=== PATIENT | male | born 1965 | race Caucasian/White ===

== ENCOUNTER 2020-09-12 11:54 | Observation (INO) ==
--- NOTE | 2020-07-08 08:48 | Anesthesiology Consultation ---
Date of Service July 08, 2020 Assessment & Plan (1) Encounter for pre-operative examination: Chart Review Chart Review: Acceptable Risk for Surgery (pending anesthesia evaluation DOS ) and Patient NOT seen in Pre Admission Testing -Will leave to anesthesiologist discretion DOS if PRP needed (only electrolytes done with preop labs) Per nursing assessment 06/18/20, patient denies any recent travel. No known Covid positive contacts or Covid related symptoms. Pt denies any known Covid infection in the past 90 days. Covid test 07/07/20= negative. History Surgery Operation Date: 07/11/20 07:15 Proposed Procedures p Tonsillectomy, Uvulopalatoplasty, - Gabriela Randle MD s Radiofrequency Reduction of Tongue Base, Lysis of Intranasal Adhesions - Gabriela Randle MD Height/Weight Height: 5 ft 8 in Weight: 113.398 kg Allergies Allergy/AdvReac Type Severity Reaction Status Date / Time nortriptyline AdvReac Mild INCREASED Verified 07/03/20 12:06 MOODINESS Medications Home Medications Medication Instructions Recorded Confirmed Last Taken atorvastatin 10 mg tablet 10 mg PO QPM 05/28/20 07/03/20 Unknown azelastine 137 mcg (0.1 %) nasal 1 spray INTRANASAL BID 05/28/20 07/03/20 Unknown spray aerosol baclofen 20 mg tablet 20 mg PO TID 05/28/20 07/03/20 Unknown diclofenac sodium 50 mg 50 mg PO BID 05/28/20 07/03/20 Unknown tablet,delayed release ferrous fumarate 325 mg (106 mg 325 mg PO QAM tab 05/28/20 07/03/20 Unknown iron) tablet methadone 5 mg tablet 10 mg PO TID tab 05/28/20 07/03/20 Unknown montelukast 10 mg tablet 10 mg PO QPM 05/28/20 07/03/20 Unknown multivitamin 1 tab PO QPM 05/28/20 07/03/20 Unknown naproxen 500 mg tablet 500 mg PO BID 05/28/20 07/03/20 Unknown omeprazole 40 mg capsule,delayed 40 mg PO BID 05/28/20 07/03/20 Unknown release ondansetron HCl 4 mg tablet 4 mg PO QAM 05/28/20 07/03/20 Unknown oxycodone 5 mg capsule 5 mg PO Q8H PRN 05/28/20 07/03/20 Unknown promethazine 25 mg tablet 25 mg PO Q6H PRN 05/28/20 07/03/20 Unknown ropinirole 0.5 mg tablet 0.5 mg PO HS 05/28/20 07/03/20 Unknown polyethylene glycol 3350 [Miralax] 17 g PO QAM 06/18/20 07/03/20 Unknown acetaminophen 500 mg tablet 500 mg PO Q6H PRN 06/30/20 07/03/20 Unknown Past Medical History Medical History (Updated 07/08/20 @ 08:53 by Laly Torres PA-C) Acid reflux Chronic back pain Compression fracture T12- 2009 per records Degenerative disc disease Derangement of medial meniscus of right knee Hiatal hernia History of anxiety Hyperlipidemia Osteoarthritis Restless leg syndrome Sleep apnea CPAP Tear meniscus knee LEFT Past Family History Family History Mother Heart disease Hypertension Family history of diabetes mellitus Brother Family history of diabetes mellitus Denies family history of Hearing loss No family history of adverse response to anesthesia No family history of bleeding disorder Allergies Cancer Stroke Asthma Past Surgical History Surgical History Family history of reaction to anesthesia FATHER-CONFUSION AND COMBATIVE History of colonoscopy History of esophagogastroduodenoscopy (EGD) History of nasal septoplasty History of nasal surgery History of tooth extraction Hx of vasectomy Social History Smoking Status: Former smoker tobacco type: cigarettes Do You Dip or Chew Tobacco: No Smoking End Date: 2002 Hx Alcohol Use: No Hx Substance Use: No substance use type: does not use Lab Results Anesthesia Preop Results Results Anesthesia Widget: WBC 6.32 K/uL (4.8-10.8) 07/07/20 Hgb 14.3 g/dL (14.0-18.0) 07/07/20 Hct 41.6 % (42-52) L 07/07/20 Plt 273 K/uL (130-400) 07/07/20 Na 140 mmol/L (136-145) 07/07/20 K 3.8 mmol/L (3.5-5.1) 07/07/20 Cl 107 mmol/L (98-107) 07/07/20 CO2 28 mmol/L (21-32) 07/07/20 PT 10.0 Seconds (9.0-12.0) 07/07/20 PTT 28.5 Seconds (21.0-31.0) 07/07/20 INR 1.0 (0.9-1.1) 07/07/20 Testing Electrocardiogram Date: 07/07/20 Findings: + NSR @ (67bpm) Nonspecific T wave abnormality
--- NOTE | 2020-09-11 13:40 | History & Physical Report ---
Date of Service September 11, 2020 Assessment & Plan (1) Obstructive sleep apnea: For tonsillectomy with uvulopalatopharyngoplasty and radiofrequency volume reduction of the tongue base (2) Allergic fungal sinusitis (AFS): For endoscopic sinus surgery with lysis of adhesions History of Present Illness Chief Complaint: Obstructive sleep apnea and nasal obstruction. Primary Care Provider: Gildardo Mims MD This 55-year-old gentleman who underwent endoscopic sinus surgery and endoscopic septal plasty by me in 2007 developed moderate obstructive sleep apnea with RDI of 33 and lowest oxygen saturation of 80% complicated by methadone for chronic back pain and inability to use his CPAP because of persistent nasal obstruction. He was noted to have adhesions in the middle meatus area. He also has moderate sized tonsils. Allergies Allergy/AdvReac Type Severity Reaction Status Date / Time nortriptyline AdvReac Mild INCREASED Verified 09/04/20 12:13 MOODINESS Home Medications Medication Instructions Recorded Confirmed Type atorvastatin 10 mg tablet 10 mg PO QPM 05/28/20 09/04/20 History azelastine 137 mcg (0.1 %) nasal 1 spray INTRANASAL BID 05/28/20 09/04/20 History spray aerosol baclofen 20 mg tablet 20 mg PO TID 05/28/20 09/04/20 History ferrous fumarate 325 mg (106 mg 325 mg PO QAM tab 05/28/20 09/04/20 History iron) tablet methadone 5 mg tablet 10 mg PO TID tab 05/28/20 09/04/20 History montelukast 10 mg tablet 10 mg PO QPM 05/28/20 09/04/20 History multivitamin 1 tab PO QPM 05/28/20 09/04/20 History omeprazole 40 mg capsule,delayed 40 mg PO BID 05/28/20 09/04/20 History release ondansetron HCl 4 mg tablet 4 mg PO QAM 05/28/20 09/04/20 History oxycodone 5 mg capsule 5 mg PO Q8H PRN 05/28/20 09/04/20 History promethazine 25 mg tablet 25 mg PO Q6H PRN 05/28/20 09/04/20 History ropinirole 0.5 mg tablet 0.5 mg PO HS 05/28/20 09/04/20 History polyethylene glycol 3350 [Miralax] 17 g PO QAM 06/18/20 09/04/20 History acetaminophen 500 mg tablet 500 mg PO Q6H PRN 06/30/20 09/04/20 History Past Med/Surg History Medical History Acid reflux Chronic back pain Compression fracture T12- 2009 per records Degenerative disc disease Hiatal hernia History of anxiety Hyperlipidemia Osteoarthritis Restless leg syndrome Sleep apnea CPAP Tear meniscus knee LEFT Surgical History Family history of reaction to anesthesia FATHER-CONFUSION AND COMBATIVE History of arthroscopy RT KNEE History of colonoscopy History of esophagogastroduodenoscopy (EGD) History of nasal septoplasty History of nasal surgery History of tooth extraction Hx of vasectomy Family History Mother Heart disease Hypertension Family history of diabetes mellitus Brother Family history of diabetes mellitus Denies family history of Hearing loss No family history of adverse response to anesthesia No family history of bleeding disorder Allergies Cancer Stroke Asthma Social History Smoking Status: Former smoker Second Hand Exposure: Yes ( A CHILD); Hx Alcohol Use: No Hx Substance Use: No Preferred Language: Bolivian Communication Ability: Effective Steam Tender Required: No Beliefs That Will Affect Care: None marital status: Current Living Situation: Family Current Living Situation Comment: WITH AND SON Feels Safe at Home: Yes Assistive Devices: CPAP and Glasses Physical Exam Constitutional: WD/WN, vitals as above Eyes: PERRL, conjunctivae normal, anicteric sclerae ENMT: Nose: + nasal mucous membrane abnormality (Adhesions blocking the middle meatus area on both sides), + nasal discharge (Thick santiago mucin) and + nasal polyps (Polypoid change of ethmoid mucosa) Mouth: + oropharynx abnormality (Large tonsils, hypertrophy) and + tongue abnormality (Tongue Mallampati 3) Neck: trachea midline, no thyromegaly PG Care Time/CCT Total # of Minutes Spent Total Time Spent with Patient: Total time spent is greater than 50% in coordination of care (as documented) at patient's floor/unit and/or counseling patient: Coding Level of Care Code None Diagnoses Obstructive sleep apnea G47.33 Allergic fungal sinusitis (AFS) J30.89; C49
[~2020-09-12 11:54] MED LIST: LR 15ML/HR IV SCH; ceFAZolin 2000MG 2,000 MG/15 ML SYR IV SCH
[2020-09-12] MEDS ORDERED: MIDAZOLAM HCL 1 MG/ML 2ML VIAL ONE (13:03)
[2020-09-12] MEDS ORDERED: fentaNYL citrate 100 MCG/2 ML VIAL ONE (13:03)
[2020-09-12] MEDS ORDERED: ONDANSETRON INJ 2 MG/ML 2 ML VIAL IV PRN (13:17)
[2020-09-12] MEDS ORDERED: ePHEDrine sulfate 50 MG/ML AMP IV PRN (13:17)
[2020-09-12] MEDS ORDERED: PROMETHAZINE HCL 6.25 MG in SODIUM CHLORIDE 0.9% 50 ML IV PRN (13:17)
[2020-09-12] MEDS ORDERED: ATROPINE SULFATE 0.1 MG/ML 10ML SYR IV PRN (13:17)
--- NOTE | 2020-09-12 13:17 | History & Physical Bridge Note ---
Date of Service September 12, 2020 History & Physical Bridge Note I have examined the patient, reviewed the History & Physical and in the interval since the performance of the History & Physical I have noted the following changes of clinical significance: no changes noted
[2020-09-12] MEDS ORDERED: LIDOCAINE 4% INH SOLN 4 ML BTL ONE (13:42)
[2020-09-12] MEDS ORDERED: EPINEPHrine INJ 1 MG/ML AMP ONE (13:42)
[2020-09-12] MEDS ORDERED: BUPIVACAINE/EPINEPHRINE 0.5% MPF 1:200,000 30 ML VIAL ONE (13:42)
[2020-09-12] MEDS ORDERED: NEOSTIGMINE METHYLSULFATE 1 MG/ML 10ML VIAL ONE (14:14)
[2020-09-12] MEDS ORDERED: LIDOCAINE 2% 2 ML VIAL/AMP(20MG/ML) INFIL ONE (14:14)
[2020-09-12] MEDS ORDERED: DEXAMETHASONE SOD INJ 4 MG/ML VIAL ONE (14:14)
[2020-09-12] MEDS ORDERED: PROPOFOL IV EMULSION 10 MG/ML 20 ML VIAL IV ONE (14:14)
[2020-09-12] MEDS ORDERED: ONDANSETRON INJ 2 MG/ML 2 ML VIAL ONE (14:14)
[2020-09-12] MEDS ORDERED: ROCURONIUM BROMIDE 10 MG/ML 5 ML VIAL IV ONE ×3 (14:14)
[2020-09-12] MEDS ORDERED: GLYCOPYRROLATE 0.2 MG/ML VIAL ONE (14:14)
--- NOTE | 2020-09-12 14:20 | Anesthesiology Consultation ---
Date of Service September 12, 2020 Assessment & Plan (1) Encounter for pre-operative examination: Chart Review Chart Review: Acceptable Risk for Surgery and Patient NOT seen in Pre Admission Testing Consults Requested none ASA ASA3 Proposed Anesthesia Anesthesia Type: General History Surgery Operation Date: 09/12/20 14:00 Proposed Procedures p Tonsillectomy, Uvulopalatopharyngoplasty; - Gabriela Randle MD s Radiofrequency Reduction of Tongue Base, Lysis of Intranasal Adhesions - Gabriela Randle MD Height/Weight Height: 5 ft 8 in Weight: 111.7 kg Allergies Allergy/AdvReac Type Severity Reaction Status Date / Time nortriptyline AdvReac Mild INCREASED Verified 09/12/20 12:44 MOODINESS Medications Home Medications Medication Instructions Recorded Confirmed Last Taken atorvastatin 10 mg tablet 10 mg PO QPM 05/28/20 09/12/20 09/11/20 21:00 azelastine 137 mcg (0.1 %) nasal 1 spray INTRANASAL BID 05/28/20 09/12/20 09/11/20 22:00 spray aerosol baclofen 20 mg tablet 20 mg PO TID 05/28/20 09/12/20 09/11/20 21:00 ferrous fumarate 325 mg (106 mg 325 mg PO QAM tab 05/28/20 09/12/20 09/11/20 08:00 iron) tablet methadone 5 mg tablet 10 mg PO TID tab 05/28/20 09/12/20 09/12/20 06:00 montelukast 10 mg tablet 10 mg PO QPM 05/28/20 09/12/20 09/11/20 17:00 multivitamin 1 tab PO QPM 05/28/20 09/12/20 09/11/20 22:00 omeprazole 40 mg capsule,delayed 40 mg PO BID 05/28/20 09/12/20 09/11/20 17:00 release ondansetron HCl 4 mg tablet 4 mg PO QAM 05/28/20 09/12/20 Unknown oxycodone 5 mg capsule 5 mg PO Q8H PRN 05/28/20 09/12/20 09/11/20 17:00 promethazine 25 mg tablet 25 mg PO Q6H PRN 05/28/20 09/12/20 Unknown ropinirole 0.5 mg tablet 0.5 mg PO HS 05/28/20 09/12/20 09/11/20 17:00 polyethylene glycol 3350 [Miralax] 17 g PO QAM 06/18/20 09/12/20 09/11/20 08:00 acetaminophen 500 mg tablet 500 mg PO Q6H PRN 06/30/20 09/12/20 Unknown Active Medications Generic Name Dose Route Start Last Admin Trade Name Jeffry PRN Reason Stop Dose Admin Cefazolin Sodium 2,000 mg in 15 mls @ 3.75 mls/min 09/12/20 06:00 09/12/20 13:47 Ancef 2000mg IV 09/12/20 18:00 3.75 mls/min PREOP JAKE Administration Protocol Lactated Ringer's 1,000 mls @ 15 mls/hr 09/12/20 06:00 09/12/20 13:47 Lr IV 09/13/20 05:59 Infused .Q24H JAKE Infusion NPO Date Last Intake of Fluids: 09/11/20 Time Last Intake of Fluids: 23:45 Date Last Intake of Solids: 09/11/20 Time Last Intake of Solids: 23:00 Past Medical History Medical History Acid reflux Chronic back pain Compression fracture T12- 2009 per records Degenerative disc disease Hiatal hernia History of anxiety Hyperlipidemia Osteoarthritis Restless leg syndrome Sleep apnea CPAP Tear meniscus knee LEFT Past Family History Family History Mother Heart disease Hypertension Family history of diabetes mellitus Brother Family history of diabetes mellitus Denies family history of Hearing loss No family history of adverse response to anesthesia No family history of bleeding disorder Allergies Cancer Stroke Asthma Past Surgical History Surgical History Family history of reaction to anesthesia FATHER-CONFUSION AND COMBATIVE History of arthroscopy RT KNEE History of colonoscopy History of esophagogastroduodenoscopy (EGD) History of nasal septoplasty History of nasal surgery History of tooth extraction Hx of vasectomy Social History Smoking Status: Former smoker tobacco type: cigarettes Do You Dip or Chew Tobacco: No Smoking End Date: 2002 Hx Alcohol Use: No Hx Substance Use: No substance use type: does not use Physical Exam Vital Signs Last Vital Signs Temp 36.9 C 09/12/20 12:33 Pulse 69 09/12/20 12:33 Resp 18 09/12/20 12:33 BP 135/69 09/12/20 12:33 Pulse Ox 94 09/12/20 12:33 Lab Results Anesthesia Preop Results Results Anesthesia Widget: WBC 6.65 K/uL (4.8-10.8) 09/03/20 Hgb 13.6 g/dL (14.0-18.0) L 09/03/20 Hct 40.4 % (42-52) L 09/03/20 Plt 278 K/uL (130-400) 09/03/20 Na 141 mmol/L (136-145) 09/03/20 K 3.5 mmol/L (3.5-5.1) 09/03/20 Cl 108 mmol/L (98-107) H 09/03/20 CO2 26 mmol/L (21-32) 09/03/20 PT 9.8 Seconds (9.0-12.0) 09/03/20 PTT 28.2 Seconds (21.0-31.0) 09/03/20 INR 1.0 (0.9-1.1) 09/03/20 SARS-CoV-2, RNA, NAAT NEGATIVE (NEGATIVE) 09/12/20
[2020-09-12] MEDS: fentaNYL citrate 100 MCG/2 ML VIAL IV PRN ×2 (15:35→15:40)
[2020-09-12] MEDS: HYDROmorphone INJ 1 MG/ML SYRINGE IV PRN ×4 (15:45→16:00)
[2020-09-12] MEDS ORDERED: SODIUM CHLORIDE 0.65% NA SOLN 45 ML (OCEAN) PRN (15:47)
[2020-09-12] MEDS ORDERED: OXYMETAZOLINE 0.05% 30 ML BTL PRN (15:47)
[2020-09-12] MEDS ORDERED: LORazepam 1 MG/2 ML VIAL IV PRN (15:47)
--- NOTE | 2020-09-12 15:47 | Operative Report ---
PG Post Operative Report Pre & Post Diagnosis Operation Date: 09/12/20 14:00 Pre-Op Diagnosis: Obstructive Sleep Apnea, Nasal Adhesions Post-Op Diagnosis: Obstructive Sleep Apnea, Nasal Adhesions I identified the patient and participated in the time-out.: Yes Procedure Operation Date: 09/12/20 14:00 Actual Procedures p Tonsillectomy, uvulopalatopharyngoplasty, left anterior ethmoidectomy, left maxillary sinusotomy, somnoplasty (radiofrequency volume reduction) of tongue base, lysis of right intranasal adhesions - Gabriela Randle MD Surgeon Gabriela Randle MD Potato Peeler None Estimated Blood Loss 100 Findings Consistent with Post-Op Diagnosis Specimens Tonsils Anesthesia Type General Complications none Disposition Accompanied Patient To Recovery: Yes Disposition: Recovery Room Indications Severe sleep apnea with RDI of 33 and oxygen desaturation to below 80%, unable to wear CPAP Description of Procedure He was brought to the operating room, properly identified, prepped and draped in the usual sterile manner. Radiofrequency volume reduction of the tongue base was performed using the [employer] machine creating 7 double-pronged lesions in the tongue base with the settings at 85 C in the rapid lesion mode at 600 J. 6 lesions were created across the base of the tongue in a crosswise fashion nonoverlapping. Seventh RFVR site was in the midline of the tongue anterior to the 2 rows across the base of the tongue. Attention was turned to the nose which was decongested with topical cottonoids with a solution of 4 cc of 4% Xylocaine mixed with 1 cc of epinephrine. The right side had a small adhesion which was lysed with a [place] freeing the middle turbinate. The frontal and maxillary sinus ostia's were patent. A propel stent was placed. Attention was turned over to the left side with the middle meatus was closed due to significant adhesions. The adhesions anteriorly were lysed using the [place] and then the adhesion over the maxillary sinus had to be broken using the [place] releasing the turbinates inferiorly. Superiorly the residual anterior wall the Agre nasi cell had to be removed using up-biting Blakesley forceps and then adhesions had to be removed using the straight biting Blakesley forceps into the ethmoids removing residual anterior ethmoid air cells to open up the ethmoid cavity. Hemostasis was controlled using the cottonoids and then a propel stent was placed. The mouthgag was placed in the soft palate was retracted using the red Mccray catheter. Peritonsillar area were injected with 0.5% Marcaine with 1-200,000 st rength epinephrine. Tonsillectomies were performed using the Coblation device removing the tonsils from the superior pole to the inferior pole. At this point a V cut was placed in the palatoglossal fold superiorly. The incision was extended across the soft palate and down each side of the uvula excising a portion of the soft palate along with the anterior half of the uvula. A flap was then cut into the palatal pharyngeal fold cutting it laterally so that the flap could be rotated laterally into the previous V cut in the palatoglossal fold. The uvula was sewn upon itself with 2-0 chromic sutures and then the closure was continue in a continuous fashion down the left side of the pharynx approximating all the mucosal edges and sewing the palatal pharyngeal flap into the V cut in the palatoglossal fold. The right mucosal edges were also approximated using 2-0 chromic sutures and then tied in the midline at the uvula to the previous suture from the left side. The pharynx was irrigated clean with saline. He tolerated procedure well and was taken recovery area in satisfactory condition. I attest to the content of the Intraoperative Record and any orders documented therein. Any exceptions are noted below.
[2020-09-12] MEDS ORDERED: hydrALAZINE HCL 20 MG/ML VIAL ONE (16:02)
[2020-09-12] MEDS ORDERED: hydrALAZINE HCL 20 MG/ML VIAL IV ONE (16:06)
--- NOTE | 2020-09-12 16:34 | Anesthesiology Progress Note ---
Date of Service September 12, 2020 Anesthesia Post Procedure Vital Signs Vital Signs: Temp Pulse Pulse Resp BP BP Pulse Ox 09/12/20 16:30 62 15 148/85 H 98 09/12/20 16:20 59 L 15 155/93 H 97 09/12/20 16:10 36.5 C 56 L 15 177/86 H 96 09/12/20 16:00 62 15 179/98 H 98 09/12/20 15:50 58 L 15 174/92 H 97 09/12/20 15:40 66 14 165/97 H 100 09/12/20 15:31 36.2 C L 74 14 176/103 H 99 09/12/20 12:33 36.9 C 69 18 135/69 94 Pain Intensity Throat: Pain Intensity: 2 Transfer of Care Handoff Completed per policy Notes Mental Status: alert / awake / arousable Patient Amnestic to Procedure: Yes Nausea / Vomiting: adequately controlled Pain: adequately controlled Airway Patency, RR, SpO2: stable & adequate BP & HR: stable & adequate Hydration State: stable & adequate Anesthetic Complications: no major complications apparent and Pt Satisfied with anesthetic care
[2020-09-12] MEDS: MoRPHine SULFATE 4 MG/ML 1 ML CARP\\VIAL IV PRN ×3 (17:09→23:04)
[2020-09-12] MEDS: ONDANSETRON INJ 2 MG/ML 2 ML VIAL IV PRN (17:10)
[2020-09-12] MEDS: D5W AND 1/2NSS + 20MEQ KCL 20 MEQ/1,000 ML BAG IV SCH (18:02)
[2020-09-12] MEDS ORDERED: ALUMINUM/MAGNESIUM/SIMETH (MAALOX MAX) 30 ML UDC PO PRN (19:39)
[2020-09-12] MEDS ORDERED: ceFAZolin 2000MG 2,000 MG/15 ML SYR IV ONE (21:00)
[2020-09-12] MEDS ORDERED: rOPINIRole HCL 0.25 MG TABLET PO SCH (21:00)
[2020-09-12] MEDS: BACLOFEN 20 MG TAB PO SCH (21:46)
[2020-09-13] MEDS: MoRPHine SULFATE 4 MG/ML 1 ML CARP\\VIAL IV PRN ×3 (02:03→09:51)
[2020-09-13] MEDS: ONDANSETRON INJ 2 MG/ML 2 ML VIAL IV PRN (03:14)
[2020-09-13] MEDS: D5W AND 1/2NSS + 20MEQ KCL 20 MEQ/1,000 ML BAG IV SCH (03:43)
[2020-09-13] MEDS ORDERED: MoRPHine SULFATE 2 MG/ML CARP ONE ×3 (03:48→06:32)
[2020-09-13] MEDS ORDERED: COUGH DROP (SUGAR FREE) LOZ 24 LOZ/1 BOX BUCCAL ONE (04:43)
[2020-09-13] MEDS ORDERED: POLYETHYLENE (MIRALAX) 17 GM PACK PO SCH (09:00)
--- NOTE | 2020-09-13 09:04 | Discharge Summary ---
Date of Service September 13, 2020 Admission HPI Per Admitting Provider This 55-year-old gentleman who underwent endoscopic sinus surgery and endoscopic septal plasty by me in 2007 developed moderate obstructive sleep apnea with RDI of 33 and lowest oxygen saturation of 80% complicated by methadone for chronic back pain and inability to use his CPAP because of persistent nasal obstruction. He was noted to have adhesions in the middle meatus area. He also has moderate sized tonsils. Admission Exam (Per Admitting) Constitutional + obese Eyes PERRL, conjunctivae normal, anicteric sclerae ENMT Nose: + nasal mucous membrane abnormality (Some bloody mucus, patent passages) and + nasal discharge (Bloody mucus) Mouth: + oropharynx abnormality (Status post tonsillectomy/UPPP, sutures in place) and + tongue abnormality (Status post radiofrequency volume reduction, pink, mobile) Neck trachea midline, no thyromegaly Respiratory normal respiratory effort Cardiovascular RRR, no murmur, no edema Discharge Data Procedures Performed Operation Date: 09/12/20 14:00 Actual Procedures p Tonsillectomy, uvulopalatopharyngoplasty, left anterior ethmoidectomy, left maxillary somnoplasty, radiofrequency reduction of tongue base, lysis of right intranasal adhesions - Gabriela Randle MD Hospital Course (1) Obstructive sleep apnea: The patient underwent endoscopic sinus surgery, tonsillectomy/UPPP, and radiofrequency volume reduction of the tongue base without complications. He did have significant pain postop and also significant back pain where he is unable to rest. He improved the next morning. His tongue was mobile with no sign of hematoma. Tonsillar stitches are in place. Nasal passages are patent with some old blood clots. (2) Chronic rhinitis: (3) Allergic fungal sinusitis (AFS): Discharge Instructions He will be discharged to home with prescription for Percocet for breakthrough pain while on methadone. All the instructions were discussed extensively with the patient and his and they both appear to understand.
[2020-09-13] MEDS: BACLOFEN 20 MG TAB PO SCH (09:46)
== END 2020-09-13 10:35 | disposition home or self-care (01) ==
LOC: ASU 11:54 → 3W 11:54

== ENCOUNTER 2024-10-12 10:45 | Observation (INO) ==
--- NOTE | 2024-09-20 10:03 | PAT Medication Instructions ---
Medication Instructions Date of Service September 20, 2024 Home Medications atorvastatin 10 mg tablet 10 mg PO QPM baclofen 20 mg tablet 20 mg PO TID ferrous fumarate 325 mg (106 mg iron) tablet 325 mg PO QAM montelukast 10 mg tablet 10 mg PO QPM multivitamin 1 tab PO QPM omeprazole 40 mg capsule,delayed release 40 mg PO BID ondansetron HCl 4 mg tablet (Zofran) 4 mg PO QAM PRN Nausea oxycodone 5 mg capsule 5 mg PO TID Pain promethazine 25 mg tablet 25 mg PO Q6H PRN Nausea ropinirole 0.5 mg tablet 0.5 mg PO HS polyethylene glycol 3350 17 gram/dose oral powder (Miralax) 17 g PO QAM PRN Constipation [id number] 250 mg-250 mg-65 mg tablet (Migraine Formula) 2 tab PO TID takes for arthritis pain cholecalciferol (vitamin D3) 50 mcg (2,000 unit) capsule (Vitamin D3) 50 mcg PO QAM fluticasone propionate 50 mcg/actuation nasal spray,suspension 1 spray intr anasal HS azelastine 137 mcg (0.1 %) nasal spray 1 spray intranasal HS buprenorphine 5 mcg/hour weekly transdermal patch 1 patch transdermal Q7D calcium 600 mg (as carbonate)-vitamin D3 5 mcg (200 unit) tablet 1 tab PO QAM diclofenac sodium 1 % topical gel 2 g topical QID PRN Pain Continue as directed buprenorphine 5 mcg/hour weekly transdermal patch 1 patch transdermal Q7D (Avoid placement near surgery site prior to surgery) ASK your surgeon for instructions [id number]-[id number] 250 mg-250 mg-65 mg tablet (Migraine Formula) 2 tab PO TID takes for arthritis pain STOP taking 24 hours before surgery diclofenac sodium 1 % topical gel 2 g topical QID PRN Pain DO NOT take the morning of surgery ferrous fumarate 325 mg (106 mg iron) tablet 325 mg PO QAM polyethylene glycol 3350 17 gram/dose oral powder (Miralax) 17 g PO QAM PRN Constipation cholecalciferol (vitamin D3) 50 mcg (2,000 unit) capsule (Vitamin D3) 50 mcg PO QAM calcium 600 mg (as carbonate)-vitamin D3 5 mcg (200 unit) tablet 1 tab PO QAM Take morning of surgery With a small sip of water, OTHERWISE NOTHING TO EAT OR DRINK AFTER MIDNIGHT: baclofen 20 mg tablet 20 mg PO TID omeprazole 40 mg capsule,delayed release 40 mg PO BID ondansetron HCl 4 mg tablet (Zofran) 4 mg PO QAM PRN Nausea (if needed) oxycodone 5 mg capsule 5 mg PO TID Pain (if needed) promethazine 25 mg tablet 25 mg PO Q6H PRN Nausea (if needed) Take evening before surgery atorvastatin 10 mg tablet 10 mg PO QPM baclofen 20 mg tablet 20 mg PO TID montelukast 10 mg tablet 10 mg PO QPM multivitamin 1 tab PO QPM omeprazole 40 mg capsule,delayed release 40 mg PO BID ondansetron HCl 4 mg tablet (Zofran) 4 mg PO QAM PRN Nausea (if needed) oxycodone 5 mg capsule 5 mg PO TID Pain (if needed) promethazine 25 mg tablet 25 mg PO Q6H PRN Nausea (if needed) ropinirole 0.5 mg tablet 0.5 mg PO HS fluticasone propionate 50 mcg/actuation nasal spray,suspension 1 spray intranasal HS azelastine 137 mcg (0.1 %) nasal spray 1 spray intranasal HS Other Notes If you have any questions please call us at [phone] or [phone] or [phone] or [phone]
--- NOTE | 2024-09-27 14:19 | Anesthesiology Consultation ---
Date of Service September 27, 2024 Assessment & Plan (1) Encounter for pre-operative examination: - Infectious disease screening: Per assessment on 09/27/24- No known recent infectious disease contacts or current infectious disease symptoms. - Outpatient joint assessment: Pt currently scheduled for inpatient pathway. If surgeon requests review for outpatient joint pathway, patient is an acceptable candidate for outpatient joint program from anesthesia standpoint pending surgeon's office assessment that patient is motivated, has good support and completes [facility] preop requirements. Chart Review Chart Review: Acceptable Risk for Surgery and Patient seen in Pre Admission Testing Teaching & Discussion Pre-Anesthesia Teaching/Discussion Notes: Instructed NPO after midnight before surgery,except medications with 15 cc of water. Medication instructions provided according to the PAT guidelines. History Surgery Operation Date: 10/12/24 08:50 Proposed Procedures p Right Total Knee Arthroplasty - Vaughn Stoll MD Height/Weight Height: 5 ft 8.5 in Weight: 120.6 kg Allergies Allergy/AdvReac Type Severity Reaction Status Date / Time nortriptyline AdvReac Mild "Increased Verified 09/24/24 14:06 moodiness" morphine AdvReac N/V Verified 09/27/24 14:43 (Possibly r/t morphine) Medications Home Medications Medication Instructions Recorded Confirmed Last Taken atorvastatin 10 mg tablet 10 mg PO QPM 05/28/20 09/13/24 12/07/22 23:00 baclofen 20 mg tablet 20 mg PO TID 05/28/20 09/13/24 12/07/22 21:00 ferrous fumarate 325 mg (106 mg 325 mg PO QAM 05/28/20 09/13/24 12/06/22 iron) tablet montelukast 10 mg tablet 10 mg PO QPM 05/28/20 09/13/24 12/07/22 21:00 multivitamin 1 tab PO QPM 05/28/20 09/13/24 12/06/22 22:00 omeprazole 40 mg capsule,delayed 40 mg PO BID 05/28/20 09/13/24 12/08/22 07:30 release ondansetron HCl 4 mg tablet 4 mg PO QAM PRN Nausea 05/28/20 09/13/24 Unknown (Zofran) oxycodone 5 mg capsule 5 mg PO TID Pain 03/03/21 06/19/25 09/12/23 23:59 promethazine 25 mg tablet 25 mg PO Q6H PRN Nausea 05/28/20 09/13/24 Unknown ropinirole 0.5 mg tablet 0.5 mg PO HS 05/28/20 09/13/24 12/07/22 21:00 polyethylene glycol 3350 17 17 g PO QAM PRN Constipation 06/18/20 09/13/24 12/07/22 08:00 gram/dose oral powder (Miralax) whrkzea-gteaelhixahpi-vbfqrshs 250 2 tab PO TID takes for arthritis 04/22/22 09/13/24 12/06/22 mg-250 mg-65 mg tablet (Migraine pain Formula) cholecalciferol (vitamin D3) 50 50 mcg PO QAM 04/22/22 09/13/24 12/06/22 mcg (2,000 unit) capsule (Vitamin D3) fluticasone propionate 50 1 spray intranasal HS 12/06/22 09/13/24 12/07/22 23:00 mcg/actuation nasal spray,suspension azelastine 137 mcg (0.1 %) nasal 1 spray intranasal HS 09/13/24 09/13/24 Unknown spray calcium 600 mg (as 1 tab PO QAM 09/13/24 09/13/24 Unknown carbonate)-vitamin D3 5 mcg (200 unit) tablet diclofenac sodium 1 % topical gel 2 g topical QID PRN Pain 09/13/24 09/13/24 Unknown buprenorphine HCl 150 mcg buccal 150 mcg buccal DIRECTED 09/27/24 09/27/24 Unknown film (Belbuca) Past Medical History Medical History Compression fracture T12, per records No surgical intervention Degenerative disc disease Hiatal hernia History of anxiety History of COVID-2020, Resolved Hx of gastroesophageal reflux (GERD) Hyperlipidemia Morbid obesity Osteoarthritis Restless leg syndrome Mostly affects arms Sleep apnea BIPAP (compliant) Exercise / Class Metabolic Activity II 4-5 Yardwork/Stairs/Walk up hill Past Family History Family History Mother Heart disease Hypertension Family history of diabetes mellitus Brother Family history of diabetes mellitus Denies family history of Hearing loss No family history of adverse response to anesthesia No family history of bleeding disorder Allergies Cancer Stroke Asthma Past Surgical History Surgical History Family history of reaction to anesthesia Father- confusion/combative History of arthroscopy Right knee History of colonoscopy History of esophagogastroduodenoscopy (EGD) History of nasal septoplasty History of nasal surgery 1. left anterior ethmoidectomy 2. left maxillary sinusotomy 3. lysis of right intranasal adhesions - Dr. Randle History of surgery somnoplasty (radiofrequency volume reduction) of tongue base - Dr. Randle History of throat surgery Tonsillectomy & Uvulopalatopharyngoplasty (UPPP) - Dr. Randle History of tooth extraction Hx of arthroscopy of left knee Hx of hand surgery left extensor tendon repair Hx of vasectomy Past Anesthesia History No Hx of Anesthesia Complications * Father- confusion/combative History of PONV No Hx of PONV and No Hx of Motion Sickness Social History Smoking Status: Former smoker tobacco type: cigarettes Do You Dip or Chew Tobacco: No Smoking End Date: Quit 2002 Hx Alcohol Use: No (None for years) Hx Substance Use: No substance use type: does not use Review of Systems Patient denies chest pain, shortness of breath, dyspnea on exertion, fever, chills, cough, wheezing. Physical Exam Vital Signs BP 159/76 P 91 TEMP 98.7 SP02 94%RA RESP 18 Physical Full cervical extension range of motion. Full TMJ range of motion. TMD > 3.5 finger breaths Mallampati Score I Dentition: intact, + crowns (molars) Lungs: clear throughout to auscultation Cardiac: regular rate and rhythm, no murmurs noted Spine: normal Carotid arteries: negative bruit Extremities: no LE edema Lab Results Anesthesia Preop Results Results Anesthesia Widget: WBC 9.36 K/ul (4.8-10.8) 09/27/24 Hgb 15.2 g/dl (14.0-18.0) 09/27/24 Hct 45.4 % (42.0-52.0) 09/27/24 Plt 298 K/uL (130-400) 09/27/24 Na 143 mmol/L (136-145) 09/27/24 K 4.2 mmol/L (3.5-5.1) 09/27/24 Cl 109 mmol/L (98-107) H 09/27/24 CO2 27 mmol/L (21-32) 09/27/24 BUN 20 mg/dl (6-23) 09/27/24 Creat 1.12 mg/dl (0.6-1.4) 09/27/24 Glucose Level 94 mg/dl (70-99(Fasting)) 09/27/24 PT 10.6 Seconds (9.0-12.0) 09/27/24 PTT 29 Seconds (21-31) 09/27/24 INR 1.0 (0.9-1.1) 09/27/24 Urine Color Yellow 09/27/24 Urine Appearance Clear (Clear) 09/27/24 Urine pH 5.5 (4.5-7.5) 09/27/24 Urine Specific Peel 1.023 (1.000-1.030) 09/27/24 Urine Protein Negative (Negative) 09/27/24 Urine Glucose (UA) Negative (Negative) 09/27/24 Urine Ketones Trace (Negative) H 09/27/24 Urine Blood Negative (Negative) 09/27/24 Urine Nitrite Negative (Negative) 09/27/24 Urine Bilirubin Negative (Negative) 09/27/24 Urine Urobilinogen Negative (Negative) 09/27/24 Urine Leukocyte Esterase Negative (Negative) 09/27/24 Blood Type O Positive 09/27/24 Antibody Screen NEGATIVE 09/27/24 Testing Electrocardiogram Date: 09/27/24 97bpm. SR with frequent PVCs. "Otherwise normal eCG" Chest X-Ray Date: 09/27/24 FINDINGS: Heart size and pulmonary vasculature are normal. No consolidation or pleural effusion. IMPRESSION: No acute findings. Other Testing CT Calcium score Date: 08/02/23 Total coronary calcium score is 8, more than 48 percent of healthy subjects of the same age, gender, and race/ethnicity who were free of clinical cardiovascular disease and treated diabetes in the Multi-Ethnic Study of Atherosclerosis (BEASLEY).
--- NOTE | 2024-10-06 08:55 | History & Physical Report ---
Date of Service October 06, 2024 Assessment & Plan (1) Right knee DJD: 53-year-old gentleman with a long history of knee problems status post bilateral knee scopes in the past with progressive knee arthritis right side worse than the left knee is failed conservative treatment. He would like to have his right knee replaced. He is also in the process of converting medicines regarding chronic narcotic use. This is managed by Dr. Cavazos. We had discussion with him and will keep him on his current medicines and just use supplemental narcotics as needed. Will use aspirin for DVT prophylaxis. He is planned to be discharged to home with home health. (2) Left knee DJD: (3) Acid reflux: (4) Chronic back pain: History of Present Illness Chief Complaint: . Bilateral knee pain and discomfort right side greater than left. Primary Care Provider: Gildardo Mims MD . The patient is a 59-year-old gentleman well-known to me from multiple orthopedic issues over time. He has a long history of a knee pain discomfort is gradually gotten worse over the past 4 to 5 years. He had his right knee scope about 4 years ago and the left one 2 years ago. Helped him temporarily. Both knees are getting a bit more painful but the right side is quite a bit worse than the left. Been through extensive conservative treatment should become less successful over time. He would like to have his right knee replaced. He does have a history of chronic narcotic use and on medicines for this. This is managed by Dr. Jean. Allergies Allergy/AdvReac Type Severity Reaction Status Date / Time nortriptyline AdvReac Mild "Increased Verified 09/24/24 14:06 moodiness" morphine AdvReac N/V Verified 09/27/24 14:43 (Possibly r/t morphine) Home Medications Medication Instructions Recorded Confirmed Type atorvastatin 10 mg tablet 10 mg PO QPM 05/28/20 09/13/24 History baclofen 20 mg tablet 20 mg PO TID 05/28/20 09/13/24 History ferrous fumarate 325 mg (106 mg 325 mg PO QAM 05/28/20 09/13/24 History iron) tablet montelukast 10 mg tablet 10 mg PO QPM 05/28/20 09/13/24 History multivitamin 1 tab PO QPM 05/28/20 09/13/24 History omeprazole 40 mg capsule,delayed 40 mg PO BID 05/28/20 09/13/24 History release ondansetron HCl 4 mg tablet 4 mg PO QAM PRN Nausea 05/28/20 09/13/24 History (Zofran) oxycodone 5 mg capsule 5 mg PO TID Pain 05/28/20 09/13/24 History promethazine 25 mg tablet 25 mg PO Q6H PRN Nausea 05/28/20 09/13/24 History ropinirole 0.5 mg tablet 0.5 mg PO HS 05/28/20 09/13/24 History polyethylene glycol 3350 17 17 g PO QAM PRN Constipation 06/18/20 09/13/24 History gram/dose oral powder (Miralax) akpvedz-jndqhlwgqyvih-pbfpppgh 250 2 tab PO TID takes for arthritis 04/22/22 09/13/24 History mg-250 mg-65 mg tablet (Migraine pain Formula) cholecalciferol (vitamin D3) 50 50 mcg PO QAM 04/22/22 09/13/24 History mcg (2,000 unit) capsule (Vitamin D3) fluticasone propionate 50 1 spray intranasal HS 12/06/22 09/13/24 History mcg/actuation nasal spray,suspension azelastine 137 mcg (0.1 %) nasal 1 spray intranasal HS 09/13/24 09/13/24 History spray calcium 600 mg (as 1 tab PO QAM 09/13/24 09/13/24 History carbonate)-vitamin D3 5 mcg (200 unit) tablet diclofenac sodium 1 % topical gel 2 g topical QID PRN Pain 09/13/24 09/13/24 History buprenorphine HCl 150 mcg buccal 150 mcg buccal DIRECTED 09/27/24 09/27/24 History film (Belbuca) Past Med/Surg History Problem List Extensor tendon rupture of hand Encounter for pre-operative examination Left knee DJD Derangement of medial meniscus of left knee Derangement of medial meniscus of right knee Right knee DJD Chronic rhinitis Obstructive sleep apnea Acid reflux Chronic back pain Medical History Morbid obesity Hx of gastroesophageal reflux (GERD) History of COVID-2020, Resolved Compression fracture T12, per records No surgical intervention Degenerative disc disease Osteoarthritis Hiatal hernia History of anxiety Restless leg syndrome Mostly affects arms Hyperlipidemia Sleep apnea BIPAP (compliant) Surgical History Hx of hand surgery left extensor tendon repair Hx of arthroscopy of left knee History of surgery somnoplasty (radiofrequency volume reduction) of tongue base - Dr. Randle History of nasal surgery 1. left anterior ethmoidectomy 2. left maxillary sinusotomy 3. lysis of right intranasal adhesions - Dr. Randle History of throat surgery Tonsillectomy & Uvulopalatopharyngoplasty (UPPP) - Dr. Randle History of arthroscopy Right knee Family history of reaction to anesthesia Father- confusion/combative Hx of vasectomy History of esophagogastroduodenoscopy (EGD) History of colonoscopy History of tooth extraction History of nasal septoplasty Family History Mother Heart disease Hypertension Family history of diabetes mellitus Brother Family history of diabetes mellitus Denies family history of Hearing loss No family history of adverse response to anesthesia No family history of bleeding disorder Allergies Cancer Stroke Asthma Social History Smoking Status: Former smoker Tobacco Type: Cigarettes Second Hand Exposure: Yes (hx); Do You Dip or Chew Tobacco: No; Hx Alcohol Use: No (None for years) Hx Substance Use: No Preferred Language: Malawian Communication Ability: Effective Visual Impairment: No Limitations Procurement Assistant Required: No Beliefs That Will Affect Care: None marital status: Current Living Situation: Spouse Current Living Situation Comment: WITH AND SON Feels Safe at Home: Yes Assistive Devices: BiPap and Glasses Review of Systems All systems reviewed & are unremarkable except as noted in HPI & below. Physical Exam . Physical examination reveals a pleasant middle-age male. Looks in pretty good health. His HEENT exam is benign. Neck supple no lymphadenopathy lungs clear to auscultation. Heart is a regular rate and rhythm douglas and soft nontender nondistended extremity is grossly neuro vas intact as follows. Examination both knees reveal patient walks with a bit of a waddling gait. Got varus alignment to both knees. Examination of the right knee reveals varus alignment. Well-healed portal sites from the previous knee scope. Small knee effusion. He is tender over the medial joint line. Range of motion 0-1 25. No instability. No pain with hip motion. Examination of the left knee reveals a similar varus deformity. Tenderness medially. Small knee effusion. Range of motion 0-1 25. No instability. Constitutional WD/WN, vitals as above Neck trachea midline, no thyromegaly Respiratory normal respiratory effort, lungs clear to auscultation Cardiovascular RRR, no murmur, no edema Gastrointestinal (Abdomen) normal bowel sounds, soft, nontender, no hepatosplenomegaly Results & Data Results & Data Laboratory Results . Diagnostic Findings . X-rays of the right knee were reviewed which show advanced right knee medial compartment DJD. Is got near complete loss of his medial joint space. Is got varus deformity to his knee and osteophytes medially. This has progressed significantly over the past 3 to 4 years. He has got similar but less severe disease in the left knee. PG Care Time/CCT Total # of Minutes Spent Total Time Spent with Patient: Total time spent is greater than 50% in coordination of care (as documented) at patient's floor/unit and/or counseling patient: Coding Level of Care Code None Diagnoses Right knee DJD M17.11 Left knee DJD M17.12 Acid reflux K21.9 Chronic back pain M54.9; G89.29
[~2024-10-12 10:45] MED LIST changes: +BUPIVACAINE 0.5 % 5 MG/1 ML PF 10ML VIAL ONE; -LR 15ML/HR IV SCH; +ROPIVACAINE 0.5% 5 MG/ML 30 ML VIAL ONE; -ceFAZolin 2000MG 2,000 MG/15 ML SYR IV SCH
[2024-10-12] MEDS ORDERED: MIDAZOLAM HCL 1 MG/ML 2ML VIAL ONE ×2 (10:46→11:50)
--- NOTE | 2024-10-12 10:51 | History & Physical Bridge Note ---
Date of Service October 12, 2024 History & Physical Bridge Note I have examined the patient, reviewed the History & Physical and in the interval since the performance of the History & Physical I have noted the following changes of clinical significance: no changes noted
[2024-10-12] MEDS: ACETAMINOPHEN 500 MG TAB PO SCH ×2 (11:05→21:06)
[2024-10-12] MEDS: dexAMETHasone**PF** 10 MG/ML VIAL ONE (11:06)
[2024-10-12] MEDS: CeleBREX 200 MG CAP PO SCH (11:06)
[2024-10-12] MEDS: METOCLOPRAMIDE HCL 10 MG TABLET PO SCH (11:06)
[2024-10-12] MEDS: LR 500ML BOLUS, THEN 15ML/HR IV SCH (11:06)
[2024-10-12] MEDS: LR 60ML/HR IV SCH (11:07)
[2024-10-12] MEDS: FAMOTIDINE 20 MG TAB PO SCH (11:07)
[2024-10-12] MEDS: DEXAMETHASONE SOD INJ 4 MG/ML VIAL IV STA (11:07)
[2024-10-12] MEDS ORDERED: PROPOFOL IV EMULSION 10 MG/ML 100 ML VIAL IV ONE (11:39)
[2024-10-12] MEDS ORDERED: LIDOCAINE 2% 2 ML VIAL/AMP(20MG/ML) INFIL ONE (11:39)
[2024-10-12] MEDS ORDERED: ONDANSETRON INJ 2 MG/ML 2 ML VIAL IV PRN ×2 (11:46→16:26)
[2024-10-12] MEDS ORDERED: HYDROmorphone INJ 2 MG/ML SYR/VIAL IV PRN (11:46)
[2024-10-12] MEDS ORDERED: ATROPINE SULFATE 0.1 MG/ML 10ML SYR IV PRN (11:46)
[2024-10-12] MEDS ORDERED: PROMETHAZINE HCL 6.25 MG in SODIUM CHLORIDE 0.9% 50 ML IV PRN (11:46)
[2024-10-12] MEDS ORDERED: DexMEDEtomidine HCL IV 100 MCG/ML VIAL IV ONE (11:57)
[2024-10-12] MEDS: ceFAZolin 3000MG 3,000 MG/72.5 ML BAG IV SCH (12:58)
[2024-10-12] MEDS ORDERED: KETAMINE HCL 10MG/ML SYR ONE (13:01)
[2024-10-12] MEDS ORDERED: GLYCOPYRROLATE 0.2 MG/ML VIAL ONE (13:34)
[2024-10-12] MEDS ORDERED: ONDANSETRON INJ 2 MG/ML 2 ML VIAL ONE (13:35)
[2024-10-12] MEDS: ORTHO JOINT ANESTHETIC ONE (13:42)
[2024-10-12] MEDS: ROPIV 0.5% 246mg, Ketorolac 30mg, EPINEPHrine 0.5mg in NSS INFIL SCH (13:47)
--- NOTE | 2024-10-12 14:51 | Operative Report ---
PG Post Operative Report Pre & Post Diagnosis Operation Date: 10/12/24 12:30 Pre-Op Diagnosis: Right Knee Degenerative Joint Disease Post-Op Diagnosis: Right Knee Degenerative Joint Disease I identified the patient and participated in the time-out.: Yes Procedure Operation Date: 10/12/24 12:30 Actual Procedures p Right Total Knee Arthroplasty(Right) - Vaughn Stoll MD Surgeon Vaughn Stoll MD It Lead Darion Borrego PA-C Estimated Blood Loss 50 Findings Consistent with Post-Op Diagnosis Operative findings revealed full-thickness cartilage loss of the medial femoral condyle and medial tibial plateau. He had a varus deformity to his knee. Moderate-sized knee joint effusion. Specimens Right knee sent for pathology. Anesthesia Type General Regional Complications none Disposition Accompanied Patient To Recovery: No Indications The patient is a 59-year-old gentleman has had a long history of knee pain and discomfort that is gotten worse over time. He said both of his knees scoped in the past which required some temporary relief for several years. Over the past year to 2 years he developed increased pain discomfort in his right knee. X- rays show progressive knee arthritis. He failed conservative measures and elected proceed with total knee arthroplasty. Description of Procedure Operative note plan's consisted of: 1. Biomet Vanguard size 70 right posterior stabilized femoral component. 2. Biomet size 75 tibial tray. 3. 12 mm posterior revise polyethylene insert. 4. 31 x 8 all poly patella. The patient was taken to the op room, identified, placed on the operating table in the supine position. All conductors were appropriately padded. IV antibiotics provided by anesthesia team. A spinal anesthetic been implemented holding room. A right sided tap was then placed. The patient was moving around a lot on the bed so a general anesthetic was then implemented. Right lower extremity was then prepped and draped in usual sterile fashion. The right leg was elevated exsanguinated with use of an Esmarch and torse placed at 300 mmHg. An anterior approach of the right knee was then performed to longitudinal incision centered over the patella. Sharp dissection was carried through subcutaneous tissue down to the extensor mechanism. A medial parapatellar arthrotomy incision was made. Some subperiosteal dissection was carried out medially. The fat pad was dissected from the patella tendon. The lateral patellofemoral joint was released. The patella subluxate laterally and the knee was flexed. The osteophytes taken off distal femur. The ACL and PCL were then released from distal femur and the tibia subluxated anteriorly. The external tibial alignment jig was then placed on the anterior face the tibia and adjusted 16 mm medially. The proximal tibial cut was made to remove about 2 mm of bone from the medial side. The tibia sized to a size 75. Attention drawn the femur. The distal femur was entered with a sharp drill. Intramedullary canal was suction. A right 6 degree valgus cutting guide was placed. The distal femoral cutting block was pinned in place. The distal femoral cut was made taking ad ditional 3 mm of bone off distal femur. The femur was then sized to a size 70. The AP cutting block was pinned parallel to the epicondylar axis which was 4 degrees of external rotation. The anterior cut, anterior chamfer, posterior cut, posterior chamfer cuts were made. The box cutting guide was placed in the just slightly lateral and the box cut was made. The knee was flexed. The remnants of the medial and lateral menisci were excised. The osteophytes taken off the posterior aspect of the femur. A trial femoral component was placed. The tibial tray was pinned in Marilin external rotation and the drill and stem punch were used great defect in proximal tibia for the tibial tray. The knee was then trialed and the 12 mm insert fit most appropriately. Attention drawn the patella. The patella was cleaned of all soft tissue. Patella thickness measured 23 mm in thickness was cut down to 15. Was sized to a size 31 patella. The lug holes were drilled for a 31 patella. The lateral osteophytes removed. Patella button was placed. Knee was taken through range of motion and the patella tracked nicely with no thumbs test. Attention then drawn to place the permanent components. All trial components were removed. A bone plug was placed into the distal femur limit blood loss. A double batch of Palacos cement was mixed. Biomet Vanguard size 70 right posterior stabilized femoral component, a size 75 tibial tray, a 12 mm posterior stabilized polyethylene insert, and a 31 x 8 all poly patella then cemented in place. The knee was brought out into full extension till cement hardened. Final cement check was then performed. The pericapsular tissues were injected with a total of 100 cc of Ortho mix. The patient did receive 1 g tranexamic acid. Tourniquet was then let down for final tourniquet time of 61 minutes. Hemostasis assured with electrocautery. Extensor Meclomen was then closed with combination 1 PDS suture and 1 Vicryl suture in a iqvfwz-ic-[id number] fashion. Extensor Meclomen was checked found to be intact. Subcutaneous tissue then closed with 2 Dexon suture in a buried interrupted fashion skin was closed skin kyle. Leg was then cleaned and dried and a sterile dressing with Xeroform, 4 fours, sterile cast padding, Cristino bandage were applied. Patient then brought out of general esthesia and transferred to the recovery room in stable condition. Patient tolerated the procedure well and there were no complications. Darion Borrego, my physician surgical dental assistant, was present for the entire procedure. His assistance was required for proper patient positioning, prepping and draping, surgical exposure, retraction, perform the technical details of the operation, placement of the implants, closure of the incision, and placement of postoperative sterile bandage. I attest to the content of the Intraoperative Record and any orders documented therein. Any exceptions are noted below.
--- NOTE | 2024-10-12 15:04 | XRay Report ---
XR knee RT 1 or 2V routine CLINICAL HISTORY: Surgical Post Op COMPARISON: None FINDINGS: Right knee prosthesis shows no hardware complication. There is expected soft tissue gas. S kin kyle are present anteriorly. IMPRESSION: Unremarkable postoperative exam. ACT 112: Negative or not required by law. Electronically signed by: Len Corley M.D. 10/12/2024 3:03 PM
--- NOTE | 2024-10-12 15:47 | Anesthesiology Progress Note ---
Date of Service October 12, 2024 Anesthesia Post Procedure Vital Signs Vital Signs: Temp Pulse Pulse Resp BP Pulse Ox O2 Del Method 10/12/24 15:45 86 16 98/64 L 93 Nasal Cannula 10/12/24 15:35 84 17 97/65 L 93 Nasal Cannula 10/12/24 15:25 86 15 116/76 93 Nasal Cannula 10/12/24 15:15 88 15 107/79 93 Nasal Cannula 10/12/24 15:05 86 19 119/85 91 Nasal Cannula 10/12/24 14:55 95 H 15 129/82 93 Nasal Cannula 10/12/24 14:46 36.1 C L 94 H 15 126/81 92 Oxymask 10/12/24 10:56 36.8 C 69 20 139/97 96 Room Air O2 Flow Rate 10/12/24 15:45 4 10/12/24 15:35 4 10/12/24 15:25 4 10/12/24 15:15 4 10/12/24 15:05 4 10/12/24 14:55 4 10/12/24 14:46 4 10/12/24 10:56 Pain Intensity Back: Pain Intensity: 4 Transfer of Care Handoff Completed per policy Notes Mental Status: alert / awake / arousable Patient Amnestic to Procedure: Yes Nausea / Vomiting: adequately controlled Pain: adequately controlled Airway Patency, RR, SpO2: stable & adequate BP & HR: stable & adequate Hydration State: stable & adequate Neuraxial Anesthesia: was administered and sensory block is resolving Anesthetic Complications: no major complications apparent
[2024-10-12] MEDS ORDERED: MAGNESIUM HYDROXIDE SUSP 30 ML UDC PO PRN (16:26)
[2024-10-12] MEDS ORDERED: METOCLOPRAMIDE HCL INJ 5 MG/ML 2 ML VIAL IV PRN (16:26)
[2024-10-12] MEDS ORDERED: PROMETHAZINE HCL 25 MG TAB PO PRN (16:26)
[2024-10-12] MEDS ORDERED: NALOXONE HCL 0.4 MG/1 ML VIAL/CARP IV PRN (16:26)
[2024-10-12] MEDS ORDERED: diphenhydrAMINE Capsule 25 MG CAP PO PRN (16:26)
[2024-10-12] MEDS ORDERED: POLYETHYLENE (MIRALAX) 17 GM PACK PO PRN (16:26)
[2024-10-12] MEDS ORDERED: TAMSULOSIN HCL 0.4 MG CAP PO PRN (16:26)
[2024-10-12] MEDS ORDERED: ALUMINUM/MAGNESIUM SUSP 30 ML UDC PO PRN (16:26)
[2024-10-12] MEDS: SODIUM CHLORIDE 0.9% 1,000 ML IV SCH (18:35)
[2024-10-12] MEDS: KETOROLAC 30 MG/ML VIAL IV SCH (18:35)
[2024-10-12] MEDS: ASCORBIC ACID 500 MG TAB PO SCH (18:35)
[2024-10-12] MEDS ORDERED: NON-FORMULARY PATIENT'S OWN MED PO PRN (19:35)
[2024-10-12] MEDS ORDERED: SENNA 8.6 MG TAB PO SCH (21:00)
[2024-10-12] MEDS: TRANEXAMIC ACID / 0.7% NACL 1,000 MG/100 ML BAG IV SCH (21:05)
[2024-10-12] MEDS: SENNA 8.6 MG TAB PO SCH (21:06)
[2024-10-12] MEDS: DOCUSATE SODIUM 100 MG CAP PO SCH (21:06)
[2024-10-12] MEDS: ASPIRIN 81 MG ECTAB PO SCH (21:06)
[2024-10-12] MEDS: MULTIVITAMIN TAB PO SCH (21:07)
[2024-10-12] MEDS: MONTELUKAST SODIUM 10 MG TABLET PO SCH (21:07)
[2024-10-12] MEDS: ATORVASTATIN 10 MG TAB PO SCH (21:07)
[2024-10-12] MEDS: BACLOFEN 20 MG TAB PO SCH (21:07)
[2024-10-12] MEDS: FLUTICASONE PROPIONATE NA SPR 16 GM BTL NAE SCH (22:31)
[2024-10-12] MEDS: AZELASTINE HCL 0.1% NASAL 200 SPRAYS/27,400 MCG BTL NAE SCH (22:31)
[2024-10-12] MEDS ORDERED: Nursing to Pharmacy Communication SCH (23:30)
[2024-10-13] MEDS: [UNRECOGNIZED DRUG - OTHER] BUCCAL SCH (00:34)
[2024-10-13] MEDS: BUPRENORPHINE 150 MCG SL SCH (00:35)
[2024-10-13] MEDS: HYDROmorphone INJ 0.5 MG/0.5 ML SYR IV PRN (01:45)
[2024-10-13 03:31] VITALS: TEMP 98.2
[2024-10-13 07:03] LABS: Hematocrit (blood only) 37.9 % (42.0-52.0); Hemoglobin 12.9 g/dl (14.0-18.0); Mean Corpuscular Hemoglobin 28.0 pg (25.0-34.0); Mean Corpuscular Volume 82.2 fL (80.0-100.0); Platelet Count 291 K/uL (130-400); RDW Standard Deviation 38.5 fL (36.4-46.3); Red Blood Count 4.61 M/uL (4.70-6.10); White Blood Count 16.78 K/ul (4.8-10.8)
[2024-10-13 07:24] LABS: Anion Gap 9.0 (3-11); Blood Urea Nitrogen 16.0 mg/dl (6-23); Calcium 8.4 mg/dl (8.6-10.3); Carbon Dioxide 22.0 mmol/L (21-32); Chloride 108.0 mmol/L (98-107); Creatinine Clr Calc Pharmacy 107.2 ml/min; Glucose 120.0 mg/dl (70-99(Fasting)); Potassium 4.1 mmol/L (3.5-5.1); Sodium 139.0 mmol/L (136-145)
--- NOTE | 2024-10-13 07:40 | Orthopedic Progress Note ---
Date of Service October 13, 2024 Assessment & Plan (1) Left knee DJD: Overall he is doing very well. He is not having much pain in the left knee. He will be seen by physical therapy today for ambulation and range of motion exercises. He is on aspirin for DVT prophylaxis. He can be discharged to home later today. He will follow-up with orthopedics in 2 weeks. Ольга Krueger was seen and examined at bedside this morning. Overall he is doing very well. He is having a little bit of pain in the left knee but is not too bad.. Has been up and ambulating to the bathroom. He has no complaints.. Review of Systems All systems reviewed & are unremarkable except as noted in HPI & below. Physical Exam On physical exam the left knee, the dressing is clean and dry. His leg is out in full extension. He has active dorsiflexion and plantarflexion of his left ankle.. Results & Data Results & Data Laboratory Results . Diagnostic Findings Postoperative x-rays of the left knee show the prosthesis to be in anatomic alignment without any evidence of fracture complication, or loosening.. PG Care Time/CCT Total # of Minutes Spent Total Time Spent with Patient: Total time spent is greater than 50% in coordination of care (as documented) at patient's floor/unit and/or counseling patient: Coding Level of Care Code 47349 Post Operative Follow-Up Diagnoses Left knee DJD M17.12
[2024-10-13 07:41] VITALS: BP 160/87; PULSE 97; RESP 16; O2SAT 96
[2024-10-13] MEDS: dexAMETHasone 10 MG in SYRINGE 0 ML IV SCH (08:16)
[2024-10-13] MEDS: CALCIUM 600MG + VIT D 400 IU TAB PO SCH (08:17)
[2024-10-13] MEDS: FERROUS SULFATE 325 MG TAB PO SCH (08:17)
[2024-10-13] MEDS ORDERED: MULTIVITAMIN TAB PO SCH (09:00)
== END 2024-10-13 13:53 | disposition home health service (06) ==
LOC: 3E 10:45 → ASU 10:45